=== PATIENT | female | born 1985 | race Caucasian/White ===

== ENCOUNTER 2019-05-19 12:59 | Outpatient (CLI) | payer MEDICAID | END 2019-05-19 14:21 | disposition home or self-care (01) | LOC: OBT 12:59 → L-D 12:59 → OBT 14:21 | DX: O13.3 Gestational [pregnancy-induced] hypertension without significant proteinuria, third trimester (principal); O24.415 Gestational diabetes mellitus in pregnancy, controlled by oral hypoglycemic drugs; O09.523 Supervision of elderly multigravida, third trimester; Z3A.36 36 weeks gestation of pregnancy | CPT/HCPCS: 76815; 76818 ==